=== PATIENT | female | born 1975 | race Hispanic/Latino ===

== ENCOUNTER 2020-10-16 07:47 | Outpatient (CLI) | payer OTHER ==
[2020-10-16] MEDS ORDERED: ATROPINE 1 MG/ML VIAL IV NR (08:56)
[2020-10-16] MEDS ORDERED: NITROGLYCERIN 0.4 MG TAB SUBL SL NR (08:56)
[2020-10-16] MEDS ORDERED: METOPROLOL TARTRATE 5 MG/5 ML INJ IV NR (08:58)
[2020-10-16] MEDS ORDERED: METOPROLOL TARTRATE 50 MG TAB PO NR (08:58)
[2020-10-16 10:11] LABS: Blood Urea Nitrogen 11 mg/dL (7-17); Calcium 9.5 mg/dL (8.4-10.2); Hemolysis Index 15
[2020-10-16 10:24] LABS: BUN/Creatinine Ratio 18
[2020-10-16] MEDS ORDERED: ATROPINE 0.1% (1 MG/10 ML) CARDIAC SYRINGE ONE (10:39)
[2020-10-16 11:20] VITALS: BP 121/69
--- NOTE | 2020-10-16 14:13 | Cat Scan Report ---
CTA HEART WITH AND WITHOUT CONTRAST 10/16/2020 10:26 AM TECHNIQUE: Routine ECG-gated coronary CT angiography performed on a 64-channel system. 3-D/MIP reform ats were postprocessed. Note that this exam targets the heart and the entire chest was not imaged. Al l CT scans at this location are performed using CT dose reduction for ALARA by means of automated exp osure control. CONTRAST: 100 ml Omnipaque 300 HISTORY: Chest Pain COMPARISONS: none PREMEDICATION: See nurse's notes. FINDINGS: CARDIAC/CORONARY FINDINGS: Please see cardiology report in this particular case. EXTRACARDIAC/EXTRACORONARY FINDINGS: VISUALIZED LUNGS: unremarkable VISUALIZED MEDIASTINUM: unremarkable VISUALIZED CHEST WALL: unremarkable VISUALIZED UPPER ABDOMEN: unremarkable . IMPRESSION 1. Please see cardiology dictation in this particular case for the cardiac/coronary findings. 2. Otherwise unremarkable extracardiac/extracoronary findings. DISCLAIMER: This is a combined radiology and cardiology interpretation. Cardiology is solely responsible for rep orting of cardiac and coronary findings. Radiology is solely responsible for reporting of the extrac ardiac and extracoronary findings. Signer Name: Juancho Baptiste Jr, MD Signed: 10/16/2020 2:08 PM Workstation Name: [id number]
--- NOTE | 2020-10-23 07:29 | CT Calcium Scoring Report ---
Coronary Calcium Score Date of service: 10/23/20 Procedure: High-resolution computed tomographic imaging of the chest was performed on10/16/20 with particular attention paid to the coronary arteries. Images from the examination were analyzed for the presence and extent of coronary artery calcification, using coronary calcium quantification software. The patient tolerated the procedure well and there were no complications. The results of the coronary calcification analysis are provided below. The patient scores are compared with published data related to scores for people of a similar age and the same gender. - Findings Total Agatson Score: 0 Findings: Cardiac CTA Indication: chest pain abnormal ecg Informed consent obtained Procedure: The patient was brought to the cardiac ct laboratory at [facility] in stable condition after a 4 hour fast. Heart rate was regulated by beta blockade. Sublingual ngt was administered. After data acquisition and reconstruction, the images were processed and reviewed on the computer workstation. Multiple phases of the cardiac cycle were assessed for image interpretation. Volume rendered images, multiplanar reformated images, and maximum intensity projections images were generated and reviewed A coronary calcium score was performed via the Agatston method. A separate radiology assessment of the non cardiac structures in the field of view will be provided. Superior vena cava in the field of view appears normal Inferior vena cava in the filed of view appears normal Ascending aorta in the field of view appears normal Descending aorta in the field of view appears normal Pulmonary artery in the filed of view appears normal Pulmonary veins enter the left atrium appropriately Left ventricle appears normal Right Ventricle appears normal Left atrium appears normal Left atrial appendage appears normal Right atrium appears normal Interventricular septum appears normal Interatrial septum appears normal Aortic valve appears normal Mitral Valve appears normal Intracardiac mass: none Pericardial effusion: none Coronary Angiography: Dominance:right Origins:normal Left main: normal Left anterior descending coronary artery and diagonal branches: normal Circumflex coronary artery and obtuse marginal branches: normal Right coronary artery: normal the procedure was well tolerated. there were no procedural complications
== END 2020-10-16 11:10 | disposition home or self-care (01) ==
LOC: CATHLABREC 07:47
PROVIDERS: ATTEND Internal Medicine
DX: R94.31 Abnormal electrocardiogram [ECG] [EKG] (principal)
CPT/HCPCS: 36415; 75574; 80048; Q9967; J0461